=== PATIENT | male | born 1980 | race Caucasian/White ===

== ENCOUNTER 2019-07-12 19:00 | Emergency (ER) | payer MEDICAID, SELFPAY ==
[2019-07-12 19:02] VITALS: BP 120/92; PULSE 106; RESP 18; TEMP 36.9; O2SAT 97; BMI 24.1
--- NOTE | 2019-07-12 19:26 | ED.DCSUM_ITS ---
History of Present Illness Informant: Patient, Family Associated Symptoms: Depressed, Decreased Interest, Decreased Concentration, Hopelessness, Suicidal Thoughts, Hostile - when he's drunk Specific plan (suicidal thought): hang himself Narrative: Brought in by mother and aunt. He is drunk and suicidal. All 3 agree that this has been the case for months if not years. He states he is dehydrated. He drinks no water or any other liquids other than alcohol. He drinks liquor and wine. When asked him what he drinks a day, he states I get up with the shakes, drink a couple bottles of wine, go to sleep, wake up and drink a couple more bottles of wine, go to sleep? He wants detox, but states he is screwed because he does not have any insurance. He agrees that he is also suicidal. He states that his life sucks. He used to see a counselor but it did not help him and it has been 6 years. He saw a counselor from [facility] for his alcohol use couple days ago and does not think that helped. He does not have any medical problems that he takes medications or as opposed to take prescriptions for. He vomits when he is really intoxicated and when he is with drawling which is pretty much every morning before he starts drinking. States he also does speed, methamphetamine, marijuana, and multiple pills that he can get a hold of any. <Hernando Alexander - Last Filed: 07/13/19 00:12> <Chris Mabry - Last Filed: 07/13/19 14:46> Chief Complaint: Suicidal - Past Medical History (1) Alcoholism Status: Chronic <Hernando Alexander - Last Filed: 07/13/19 00:12> Past Medical History Lives: With Family Alcohol: Heavy Drugs: Cocaine, Marijuana <Hernando Alexander - Last Filed: 07/13/19 00:12> <Chris Mabry - Last Filed: 07/13/19 14:46> - Allergies and Home Meds Allergies/Adverse Reactions: Allergies No Known Allergies Allergy (Verified 07/12/19 19:01) Primary Care Physician: NOT,DEFINED [NON-STAFF] - Review of Systems General: Reports: Malaise. Denies: Chills, Fever, Sweats Eyes: Denies: Visual changes - bilaterally, Diplopia ENT: Denies: Rhinorrhea, Sore throat Cardiovascular: Denies: Chest pain, Palpitations Respiratory: Denies: Dyspnea, Cough, Dyspnea on exertion Gastrointestinal: Reports: Nausea, Vomiting. Denies: Abdominal pain, Diarrhea, Melena, Hematochezia Genitourinary: Denies: Dysuria, Hematuria, Frequency Musculoskeletal: Denies: Back pain, Extremity Pain Skin: Denies: Rash, Wounds Neurological: Denies: Headache, Weakness, Numbness Psych: Reports: Depression, Suicidal thoughts, Suicidal ideations <Hernando Alexander - Last Filed: 07/13/19 00:12> Physical Exam Vital Signs/Narrative: Vital Signs Temp Pulse Resp BP Pulse Ox 07/12/19 19:02 98.5 F 106 H 18 120/92 H 97 Inital Vital Signs reviewed: Yes General: Well nourished, Well developed, - - NAD Head: Normocephalic, Atraumatic Eyes: Perrl, EOMI ENT: Moist mucous membranes, No rhinorrhea Neck: Supple, Nontender Cardiovascular: Regular rate, Regular rhythm, No murmurs Respiratory: No distress, CTA bilaterally, Chest nontender Abdomen: Soft, Nontender, Nondistended, Normal bowel sounds Back: Nontender, Normal Inspection Extremities: Nontender, No Edema Skin: Normal color, No rash Neurological: Alert, Oriented x3, Cranial nerves II-XII grossly intact, Normal Strength, Normal Sensation Psych: Good Insight, Depressed, Irritable, Labile, Poor Judgement <Hernando Alexander - Last Filed: 07/13/19 00:12> Vital Signs/Narrative: Vital Signs Temp Pulse Resp BP Pulse Ox 07/13/19 14:00 98.6 F 79 18 146/94 H 98 07/13/19 13:00 16 07/13/19 12:43 18 <Chris Mabry - Last Filed: 07/13/19 14:46> Diagnostic/Tx/Re-eval Laboratory Results 07/12/19 07/12/19 07/12/19 21:15 21:25 21:25 WBC 10.4 RBC 5.41 Hgb 16.7 H Hct 48.5 MCV 89.6 MCH 30.9 MCHC 34.4 RDW Std Deviation 39.1 RDW Coeff of Prakash 11.9 Plt Count 289 MPV 8.2 Immature Gran % (Auto) 0.300 Neut % (Auto) 37.6 L Lymph % (Auto) 51.9 H [place] % (Auto) 6.0 Eos % (Auto) 3.6 Baso % (Auto) 0.6 Absolute Neuts (auto) 3.9 Absolute Lymphs (auto) 5.38 H Nucleated RBC % 0 Differential Comment SCANNED PT INR Sodium 139 Potassium 3.9 Chloride 104 Carbon Dioxide 28.0 Anion Gap 7 BUN 18 Creatinine 0.93 Estim Creat Clear Calc 116.95 Est GFR (MDRD) Af Amer 118 Est GFR (MDRD) Non-Af 98 BUN/Creatinine Ratio 19.4 Glucose 90 Calcium 8.8 Total Bilirubin 0.30 AST 57 H ALT 61 Alkaline Phosphatase 71 Total Protein 8.0 Albumin 4.2 Globulin 3.8 Albumin/Globulin Ratio 1.1 Urine Opiates Screen NEGATIVE Urine Methadone Screen NEGATIVE Ur Barbiturates Screen NEGATIVE Ur Phencyclidine Scrn NEGATIVE Ur Amphetamines Screen NEGATIVE U Methamphetamin-MDMA NEGATIVE U Benzodiazepines Scrn NEGATIVE Urine Cocaine Screen NEGATIVE U Cannabinoids Screen NEGATIVE Ur Drug Screen Comment Ethyl Alcohol 07/12/19 07/12/19 21:25 21:25 WBC RBC Hgb Hct MCV MCH MCHC RDW Std Deviation RDW Coeff of Prakash Plt Count MPV Immature Gran % (Auto) Neut % (Auto) Lymph % (Auto) [place] % (Auto) Eos % (Auto) Baso % (Auto) Absolute Neuts (auto) Absolute Lymphs (auto) Nucleated RBC % Differential Comment PT 11.2 L INR 0.8 Sodium Potassium Chloride Carbon Dioxide Anion Gap BUN Creatinine Estim Creat Clear Calc Est GFR (MDRD) Af Amer Est GFR (MDRD) Non-Af BUN/Creatinine Ratio Glucose Calcium Total Bilirubin AST ALT Alkaline Phosphatase Total Protein Albumin Globulin Albumin/Globulin Ratio Urine Opiates Screen Urine Methadone Screen Ur Barbiturates Screen Ur Phencyclidine Scrn Ur Amphetamines Screen U Methamphetamin-MDMA U Benzodiazepines Scrn Urine Cocaine Screen U Cannabinoids Screen Ur Drug Screen Comment Ethyl Alcohol 328.0 H* I had a long conversation with the patient. I told him that we would get a counselor talk to him if he would give us some blood and urine samples to evaluate him further with, we would help him with his depression, we would place an IV and give him a bag of fluid along with some medications to help him feel better, also thiamine and folate were ordered. I advised him that admitting him here would not be the best plan given his suicidality, and that we would need to look for a place that would be able to admit him for his psychiatric issues and also be able to help him with his addiction issues and alcohol withdrawal. Also advised that we would be happy to treat his withdrawal symptoms if he developed any while he was here. He exclaimed thanks and was calm. After I left the room, his family accompanied him outside of the ER but he returned, willingly. He was then pink slipped and offered oral Ativan at his request for something to help him calm down, although he refused to take it then. He then was more accepting to our offer for treatment, but he refused IV because he states he is afraid of needles, and all fluids and medications that we ordered. His work-up returned unremarkable except for his alcohol over 300. He is medically cleared, and I asked him if he would like to be admitted for detox, which is part of what we discussed at length earlier. He was reminded that to admit him for inpatient detox from alcohol he would need an IV. As a result of this, he states he would not like to be admitted and would prefer to quit cold turkey. Given this, he will need to be watched in the emergency department until he is alcohol is metabolized and then crisis will see him. I did discuss with him that if he requires medications for withdrawal that we would may need to give him injections or pills, and he still is refusing an IV. <Hernando Alexander - Last Filed: 07/13/19 00:12> - EKG Initial EKG Interpretation: Sinus Rhythm, No Acute Injury Pattern Care of the patient was turned over to me at 7 AM. Patient was resting comfortably. Repeat alcohol level was obtained and was 62. Crisis counselor was in to evaluate the patient and felt that the patient would benefit from inpatient behavioral health admission as well as admission for his alcohol abuse. He is attempting to place the patient in a facility that can treat both. EKG was ordered. Patient is medically cleared for psychiatric admission. Patient understands and is agreeable with the plan. All questions were answered. <Chris Mabry - Last Filed: 07/13/19 14:46> ED Disposition <Hernando Alexander - Last Filed: 07/13/19 00:12> <Chris Mabry - Last Filed: 07/13/19 14:46> - Plan for ED Patient: Diagnosis: Alcoholism, Alcohol intoxication, Suicidal ideation Referrals: NOT,DEFINED [NON-STAFF] -
--- NOTE | 2019-07-12 19:29 | ED.RN ---
WHEN THIS RN INITIALLY ENTERED ROOM FOR PATIENT ASSESSMENT PT STATES FUCK THIS BITCH SHE DOESN'T KNOW ANYTHING ABOUT ADDICTION. THIS RN CONTINUED TO SPEAK WITH MOTHER AND AUNT IN ROOM SINCE PT WAS UNCOOPERATIVE AND NOT MAKING EYE CONTACT. VISIBLE AGITATION. DR. BATES ENTERS ROOM AND BEGINS HIS ASSESSMENT OF PT WHILE THIS RN STILL IN ROOM. WHEN DR. BATES LEFT THE ROOM PT STATES SEND THE DOCTOR BACK IN TO GIVE ME A BLOW JOB. THIS RN CONTINUES TO TALK TO PATIENT PROFESSIONALLY ASKING IF HE NEEDED TO USE THE BATHROOM FIRST TO GET A SAMPLE OF WOULD PREFER TO JUST GET BLOOD WORK AND MEDICATION. PT STATES FUCK THIS I'M OUT OF HERE PATIENT LEAVES ROOM WITH MOTHER AND AUNT LEAVES THE EMERGENCY DEPARTMENT. DR. BATES NOTIFIED. DR. BATES STATES WE ARE NOT GOING TO HOLD HIM HERE AGAINST HIS WILL FOR TREATMENT. CHARGE NURSE Nickolas CARDONA, ALSO NOTIFIED OF SITUATION.
--- NOTE | 2019-07-12 19:48 | ED.RN ---
PT RE-ENTERS THE EMERGENCY DEPARTMENT AND ESCORTED BACK TO HIS ROOM. ALL BELONGINGS TAKEN AT THIS TIME. NOTIFIED. ELISE NOTIFIED
[2019-07-12 21:00] VITALS: RESP 18
--- NOTE | 2019-07-12 21:07 | CM.ED ---
Social Work Consult: Suicidal Informant: Dr. Alexander Chief Complaint: Patient seeking help for substance abuse, both alcohol and drugs. Marital/Social History: Single. Patient stating to have three children that I get to see sometimes. Living Situation: Lives with patient mother, Netta for the past three weeks. Support/Resources: Patient mother and aunt, Kristie. Patient stating to be in active counseling at [facility], Jose is patient counselor. Patient stating to also be on waiting list for [facility]. History: None Education/Employment: Unable to assess due to patient not responding to questions. Mental Health Treatment/History: Depression. Patient believes that patient might be bi-polar as well. Patient does not respond to question when asked if patient has any history of inpatient psychiatric placements. Abuse Issues: Unable to assess due to patient not responding to question. Substance Abuse Hx: Patient stating substance of choice is wine and to consume at least 6 bottles a wine daily. Patient stating the only time I am not drinking, it when I am sleeping. Patient stating to also use speed, pills and to prefer downers. Patient also stating to have a history of IV drug abuse. Patient stating to have a history of detox but that when patient detox's patient then decides that patient is able to help self and does not go into any extended treatment programs. Patient stating I love drugs. 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 Patient stating that last drink of wine was a few hours ago. Risk to Self/Others: Patient not responding to question when asking patient if patient is having any suicidal thoughts. Patient stating only a counselor would ask that. This social insurance specialist reeducating patient the role of this social insurance specialist. Patient then stating why am I fucking talking to you if your not a doctor. Patient then stating to remember that this social insurance specialist did introduce self when entering the room. This social insurance specialist did explain social insurance specialist role to patient again. Dr. Alexander is pink slipping patient based off of patient mother report and patient making suicidal comments on admission to ED. Mental Status Exam: A&Ox3 Appearance/General Behavior: Disheveled. Agitated. Communication Pattern: Responds to some questions. Non-directable. Changes topic often. Judgement: Poor. Assessment: Met with patient in room. Introduced self as well as social insurance specialist role. Patient mother and aunt are both present. Patient wanting family members to stay in room during assessment. Patient is not initially open to speaking with this social insurance specialist. This social insurance specialist allowing Nickolas Gonzalez RN to introduced this social insurance specialist further. Patient now speaking with this social insurance specialist, but then declined to speak with this social insurance specialist further when this social insurance specialist attempted to assess suicidal ideation/thoughts/intent. Patient with foul language through provocative statements throughout assessment. Patient did attempt to leave the ED and HRO Kyle Wilcox was notified and began speaking with patient. Kyle Wilcox was able to direct patient back to patient room. Patient continues to be agitated and frustrated when speaking with staff. Patient perseverating on being stuck by a needle. Patient stating to not want patient blood drawn via needle due to seeing to many bad needles. Patient educated by this social insurance specialist and medical team multiple times on reason for why blood work needs to be obtained and hygienic manner in which blood is obtained by trained professionals. Patient continues to refuse to have blood drawn. This social insurance specialist then leaving the room as patient appears to be getting more escalated with this social insurance specialist present as patient continues to state that she won't be able to help me. Updated medical team on assessment. Patient to have further evaluation either by social work or crisis when medically cleared. Malgorzata ARITA, CHANTAL
--- NOTE | 2019-07-12 21:25 | ED.RN ---
PATIENT MOVED FROM ED ROOM 8 TO ED ROOM 4 FOR STAFF AND PATIENT SAFETY. PT STILL CONFRONTATIONAL WITH STAFF. KADEEM MAGANA AT BEDSIDE SPEAKING WITH PATIENT. PATIENT CALM WITH OFFICER CHINO. PT ALLOWS CHARGE NURSE ALBERTO TO DRAW HIS BLOOD VIA STRAIGHT STICK BUT REFUSES AND IV STATING HE IS TERRIFIED OF NEEDLES. DR. BATES NOTIFIED OF INABILITY TO PLACE AN IV DUE TO PATIENT NONCOMPLIANCE. PT ALSO REFUSES ORAL ATIVAN TO HELP WITH WITHDRAWAL SYMPTOMS. SITTER AT BEDSIDE WITH PATIENT
[2019-07-12 21:32] LABS: Absolute Lymphocyte Count 5.38 X10^3/uL (0.83-4.51); Absolute Neutrophil Count 3.9 X10^3/uL (2.0-7.7); Basophil# 0.06 X10^3/uL; Basophil% 0.6 % (0-1); Differential Indicated SCAN CRITERIA MET; Eosinophil# 0.37 X10^3/uL; Eosinophils% 3.6 % (0-5); Hematocrit 48.5 % (40-54); Hemoglobin 16.7 g/dL (13.0-16.5); Lymphocyte # 5.38 X10^3/ul (4.0); Lymphocyte % 51.9 % (19-41); Mean Corp Hgb Conc 34.4 g/dL (32-36); Mean Corpuscular Hgb 30.9 pg (27.0-32.0); Mean Corpuscular Volume 89.6 fL (80-94); Mean Platelet Vol. 8.2 fl (6.2-12.0); Monocyte# 0.62 X10^3/uL; NRBC Flagged by Analyzer 0 % (0-5); Neutrophil % 37.6 % (47-70); POSITIVE DIFFERENTIAL YES; Platelet Count 289 K/mm3 (150-450); RBC Distribution Width CV 11.9 % (11.6-14.6); RBC Distribution Width SD 39.1 fl (35.1-43.9); Red Blood Count 5.41 M/mm3 (4.6-6.2); White Blood Count 10.4 K/mm3 (4.4-11.0)
[2019-07-12 21:41] LABS: International Normalized Ratio 0.8; Prothrombin Time (Protime)PT. 11.2 SECONDS (11.7-14.9)
[2019-07-12 21:50] LABS: ALB/GLOB Ratio 1.1 RATIO (0.9-2.4); AST(SGOT) 57 U/L (15-37); Alanine Aminotransfer ALT/SGPT 61 U/L (16-61); Albumin, Serum 4.2 g/dL (3.2-5.0); Alkaline Phosphatase 71 U/L (45-117); Anion Gap 7 (5-15); BUN 18 mg/dL (7-18); BUN/Creat Ratio 19.4 RATIO (10-20); Calcium,Total 8.8 mg/dL (8.5-10.1); Chloride 104 mmol/L (98-107); Creatinine, Serum 0.93 mg/dL (0.70-1.30); EST Glomerular Filtration Rate 98 mL/min (>60); Est Glom Filt Rate - Afr Amer 118 mL/min (>60); Estimated Creatinine Clearance 116.95 ml/min; Globulin 3.8 g/dL (2.2-4.2); Glucose 90 mg/dL (74-106); Potassium 3.9 mmol/L (3.5-5.1); Sodium Level 139 mmol/L (136-145)
[2019-07-12 22:00] VITALS: RESP 16
[2019-07-12 22:08] LABS: Amphetamine Urine VISTA NEGATIVE (<1000 ng/mL); Barbiturate Urine VISTA NEGATIVE (< 200 ng/mL); Benzodiazepine Urine VISTA NEGATIVE (< 200 ng/mL); Cocaine Urine VISTA NEGATIVE (< 300 ng/mL); Ecstacy Urine VISTA NEGATIVE (< 500 ng/mL); Methadone Urine VISTA NEGATIVE (< 300 ng/mL); PCP Urine VISTA NEGATIVE (< 25 ng/mL); THC Urine VISTA NEGATIVE (< 50 ng/mL); Vista UDS pH Range 7
[2019-07-12 22:18] LABS: Differential Comment SCANNED
[2019-07-12 23:00] VITALS: RESP 17
[2019-07-13] VITALS (19 sets, daily range): BP systolic 116–146; BP diastolic 72–94; PULSE 73–89; RESP 16–18; TEMP 36.9–37; O2SAT 96–100
--- NOTE | 2019-07-13 08:05 | ED.RN ---
BREAKFAST TRAY DELIVERED TO PT. PT DENIES FURTHER NEEDS AT THIS TIME. AWAITING CRISIS TO SEE PT. PT COOPERATIVE AT THIS TIME.
[2019-07-13] MEDS: Ibuprofen 600 MG Tablet PO (08:17)
--- NOTE | 2019-07-13 09:06 | NURSING ---
CALLED CRISIS. TALKED TO VICE PRESIDENT CONSULTING SERVICES. SHE WILL GIVE MESSAGE TO TALON
--- NOTE | 2019-07-13 10:02 | NURSING ---
TALON, CRISIS, CALLED BACK. TALKING TO CHARGE
[2019-07-13] MEDS: Nicotine Polacrilex 2 MG GUM PO (10:28)
--- NOTE | 2019-07-13 10:34 | NURSING ---
TALON, CRISIS, HERE
--- NOTE | 2019-07-13 14:24 | EKG12_ITS ---
Test Reason : MHC Blood Pressure : / mmHG Vent. Rate : 071 BPM Atrial Rate : 071 BPM P-R Int : 144 ms QRS Dur : 098 ms QT Int : 390 ms P-R-T Axes : 053 084 080 degrees QTc Int : 423 ms Normal sinus rhythm Normal ECG Confirmed by TREVON SALAZAR, JERED ([id number]), website/blog editor EMERSON ARRIAZA ([id number]) on 07/16/2019 2:10:33 PM Referred By: TEODORO Confirmed By:NAMITA LESTER MD
--- NOTE | 2019-07-13 14:45 | NURSING ---
NO OLD EKGS
[2019-07-13 17:11] LABS: Bacteria 0 SEEN /hpf (None Seen); Mucous, Urine 0 SEEN /hpf (<or=2+); Red Blood Cells-Urine 0 SEEN /hpf (0-5); Squamous Epithelial Cells - UA 0 SEEN /hpf (0-5)
[2019-07-13 17:18] LABS: Color, Urine Yellow (Yellow); Glucose, Dipstick Normal (Normal); Ketone-Dipstick Negative (Negative); Leukocyte Esterase-Dipstick 100 /ul (Negative); Nitrite-Dipstick Negative (Negative); Occult Blood-Urine Negative /ul (Negative); Protein-Dipstick 15 mg/dl (Negative); Urine Bilirubin Dipstick Negative (Negative); Urine Clarity Clear (Clear); Urine Urobilinogen Normal (Normal)
[2019-07-13 17:45] LABS: White Blood Cells 0-5 SEEN /hpf (0-5)
== END 2019-07-13 21:03 ==
PROVIDERS: Emergency Medicine; Emergency Provider Emergency Medicine
DX: F10.229 Alcohol dependence with intoxication, unspecified (principal); R45.851 Suicidal ideations; F14.90 Cocaine use, unspecified, uncomplicated; F12.90 Cannabis use, unspecified, uncomplicated; Y90.3 Blood alcohol level of 60-79 mg/100 ml
CPT/HCPCS: 80053; 80307; 80320; 81001; 85025; 85610; 93005; 96361; 96374; 99284; J7030; A4216; G0480; J2405; J3490

== ENCOUNTER 2021-08-11 09:38 | Emergency (ER) | payer MEDICAID, SELFPAY ==
[2021-08-11 09:39] VITALS: BP 137/85; PULSE 67; RESP 16; TEMP 36.6; O2SAT 100; BMI 25.1
--- NOTE | 2021-08-11 09:42 | ED.RN ---
PT STATES INJURY OCCURRED AT WORK. PT AT THIS TIME DOES NOT WANT TO MAKE THIS A WORKERS COMP
--- NOTE | 2021-08-11 09:57 | ED.VIS.BACK ---
HPI History of Present Illness Chief Complaint: Back Detail of Chief Complaint: Back pain/injury that occurred yesterday Informant: patient Narrative Narrative: Patient presents to the emergency department chief complaint of back pain started yesterday while at work. Patient states that he was lifted a 40 pound box and was turning with it when he felt a discomfort in his low back. Patient was able to finish his shift. This morning he had a hard time getting out of bed and straightening up because of the amount of discomfort. Patient denies any pain rating down his legs. He denies numbness or tingling. He denies weakness of the extremity. He denies saddle anesthesia or paresthesias. Patient does not want to file this under Workmen's Comp. at this time. Prior similar symptoms: No PFSH PFSH Medical History no medical history Home Medications NK 07/12/19 [History Last Taken Unknown] Allergy/AdvReac Type Severity Reaction Status Date / Time No Known Allergies Allergy Verified 08/11/21 09:42 Surgical History no surgical history Social History Smoking Status: Current every day smoker tobacco type: cigarettes ROS ROS ED Constitutional Constitutional ED: Reports systems reviewed and no addt'l complaints, except as documented; Denies body ache(s), change in weight or chills Eyes Eyes: Denies acute decrease in peripheral vision, change in vision, double vision or loss of vision ENT ENT ED: Reports none; Denies ear pain, lip swelling, loss taste/smell, neck pain, otalgia or sore throat Cardiovascular Cardiovascular: Reports none; Denies abdominal pain, chest pain with activity, leg edema, lightheadedness, palpitations, rapid heart rate or syncope Respiratory/Chest Respiratory/Chest: Reports none; Denies change in mental status, dry cough, dyspnea, hemoptysis, shortness of breath at rest or shortness of breath with exertion Gastrointestinal Gastrointestinal: Reports none; Denies abdominal pain, change in stool character, diarrhea, hematemesis, hematochezia, melena, rectal bleeding or vomiting Genitourinary Genitourinary ED: Reports none; Denies abdominal discomfort, anuria, dysuria, genital pain or polyuria Musculoskeletal Musculoskeletal: Reports none and back pain; Denies arthralgias, difficulty walking, extremity pain, muscle weakness or myalgias Integumentary Reports none; Denies abscess or rash Neurologic Neurologic: Reports none; Denies abnormal gait, confusion, focal weakness, frequent falls, headache(s), loss of vision, numbness, paresthesias, radicular pain, vertigo or weakness Psychiatric Psychiatric: Reports systems reviewed and no addt'l complaints, except as documented and none; Denies behavioral changes, confusion, difficulty concentrating, hallucinations, suicidal ideation, tactile hallucinations or visual hallucinations Endocrine Endocrinology: Denies none, cold intolerance, excessive sweating, fatigue or heat intolerance Hematologic/Lymphatic Hematologic/Lymphatic: Reports none; Denies anemia, easy bleeding or easy bruising Allergic/Immunologic Allergic/Immunologic ED: Denies as per HPI, none, lip swelling, mouth swelling, throat swelling, tongue swelling or hives EXAM Physical Exam Const Vital Signs: 08/11/21 09:39 Temperature 97.9 F Temperature Source Temporal Pulse Rate 67 Respiratory Rate 16 Blood Pressure 137/85 H Blood Pressure Mean 102 Pulse Ox 100 Oxygen Delivery Method Room Air Positive well nourished and well developed General Appearance ED: well developed and NAD HEENT Reports TM's clear and moist mucous membranes normocephalic and atraumatic; Negative for trauma or tenderness Tympanic Membrane ED: Yes TM's clear Eyes PERRL and EOMs intact bilaterally General Eye ED: Negative for pale conjunctiva or scleral icterus Neck no lymphadenopathy, supple and no JVD General: Negative for tenderness Chest Wall inspection of chest normal and palpation of chest normal Chest: Negative for tenderness Resp normal respiratory effort and clear to auscultation bilaterally Effort and Inspection: Negative for respiratory distress or pain with movement Auscultation: Negative for rhonchi, wheezes or diminished lung sounds Cardio regular rate, regular rhythm, S1 normal heart sound, S2 normal heart sound and no murmurs Peripheral Pulses: pulses 2+ throughout GI normal to inspection, nondistended, normoactive bowel sounds, soft to palpation, non-tender, non-distended and no masses Back/Spine no CVA tenderness and no thoracic nor lumbar tenderness Back/Spine Narrative: Patient with mild tenderness over the lumbar paraspinal musculature bilaterally. No tenderness over the thoracic or lumbar spine. He has negative straight leg raises. Deep tendon reflexes are plus 2 out of 4 bilaterally at the patella and Achilles. Patient has normal 5 extension bilaterally. Extremity normal to inspection General Extremety ED: Negative for edema General Extremity: Negative for edema Neuro oriented x3, CN's II-XII intact bilaterally, no sensory deficits noted and gait normal Sensorium / Orientation: awake, alert, oriented to person, oriented to place and oriented to time Motor Exam: strength 5/5 throughout and strength abnormal Psych mental status grossly normal Skin no rashes or lesions noted and no wounds MDM MDM MDM Narrative Medical decision making narrative: Patient is now anything for pain in department. Patient states he will stick with ibuprofen and he just wanted to get checked out. He called off work for today and wants a note for work for today and possibly tomorrow. He does not want work restrictions. I will refer him to primary care physician perfusionist for no doc for follow-up. Discharge Plan Triage Chief Complaint: Back ED Provider: Yoli Romo Dx/Rx/DC Orders Clinical Impression: Acute lumbar myofascial strain Instructions: ED Back Sprain/Strain Prescriptions: No Action NK RF: 0 Primary Care Provider: Care Physician,No Primary Referrals: Chris Cordero MD [STAFF PHYSICIAN] - 3-5 Days Care Physician,No Primary [Primary Care Provider] - Disposition Disposition: Home, Self Care
[2021-08-11 10:39] VITALS: PULSE 74; RESP 16
--- NOTE | 2021-08-11 10:40 | ED.RN ---
THIS NURSE REVIEWED D/C INSTRUCTIONS WITH PT AND VISITOR. PT VERBALIZED UNDERSTANDING OF INSTRUCTIONS. PT DENIES FURTHER NEEDS OR QUESTIONS AT THIS TIME.
== END 2021-08-11 10:41 | disposition home or self-care (01) ==
LOC: ED 10:06
PROVIDERS: Emergency Provider Emergency Medicine; Visit Provider Emergency Medicine
DX: S39.012A Strain of muscle, fascia and tendon of lower back, initial encounter (principal); F17.210 Nicotine dependence, cigarettes, uncomplicated; X50.0XXA Overexertion from strenuous movement or load, initial encounter; Y93.89 Activity, other specified; Y99.0 Civilian activity done for income or pay; Y92.89 Other specified places as the place of occurrence of the external cause
CPT/HCPCS: 99282

== ENCOUNTER 2023-09-19 10:37 | Inpatient (IN) | payer MEDICAID, SELFPAY ==
[2023-09-19] VITALS (12 sets, daily range): BP systolic 119–186; BP diastolic 78–106; PULSE 76–143; RESP 16–24; TEMP 35.5–37.5; O2SAT 97–100; BMI 25.5; BMI 24.8
--- NOTE | 2023-09-19 11:23 | EX.ED.SAOD ---
HPI <VENKATESH Wolfe - Last Filed: 09/19/23 14:59> History of Present Illness Chief Complaint: Substance Abuse Narrative Narrative: Patient presenting today requesting alcohol detox. He reports that he has been drinking heavily for years and drinks about 2 large bottles- 2 gallons of vodka daily. He reports that he has been on a 10-day binge and feels like his bodies,poisoned. He reports that he will experience withdrawal within a few hours after his last drink, he will have hallucinations, nausea, vomiting, tremors, and anxiety. His last drink was a few hours ago. He reports that he is feeling shaky and anxious. He has detoxed in the past. He has abused barbiturates and benzodiazepines in the past but has not used them in about 5 years. He did report to triage that he was feeling suicidal and stated,I plan on drinking myself to or finding pills to overdose on. PFSH <VENKATESH Wolfe - Last Filed: 09/19/23 14:59> [facility] Home Medications cholecalciferol (vitamin D3) 50 mcg (2,000 unit) capsule (D3-2000) 50 mcg PO DAILY SUPPLEMENT 09/19/23 [History Last Taken Unknown] magnesium oxide 1 tab PO DAILY SUPPLEMENT 09/19/23 [History Last Taken Unknown] multivitamin (Daily Multi-Vitamin tablet) 1 tab PO DAILY SUPPLEMENT 09/19/23 [History Last Taken Unknown] omega 2-jsg-kuw-fish oil 60 mg-90 mg-500 mg capsule (Fish Oil) 1 cap PO DAILY SUPPLEMENT 09/19/23 [History Last Taken Unknown] zinc sulfate 1 tab PO DAILY SUPPLEMENT 09/19/23 [History Last Taken Unknown] Allergy/AdvReac Type Severity Reaction Status Date / Time No Known Allergies Allergy Verified 08/11/21 09:42 Social History Smoking Status: Current every day smoker tobacco type: cigarettes ROS <VENKATESH Wolfe - Last Filed: 09/19/23 14:59> ROS ED Constitutional Constitutional ED: Denies chills or fever(s) Cardiovascular Cardiovascular: Denies chest pain or palpitations Respiratory/Chest Respiratory/Chest: Denies cough or dyspnea Gastrointestinal Gastrointestinal: Reports nausea; Denies abdominal pain or vomiting Genitourinary Genitourinary ED: Denies dysuria, hematuria or urinary urgency Musculoskeletal Musculoskeletal: Denies arthralgias or myalgias Integumentary Denies rash Neurologic Neurologic: Denies weakness Psychiatric Psychiatric: Reports anxiety, suicidal ideation and suicidal thoughts; Denies homicidal ideation EXAM <VENKATESH Wolfe - Last Filed: 09/19/23 14:59> Physical Exam Const Vital Signs: 09/19/23 10:41 09/19/23 10:40 09/19/23 11:40 Temperature 96 F L Temperature Source Temporal Pulse Rate 125 H 125 H 106 H Respiratory Rate 24 H 19 H Blood Pressure 148/92 H 148/92 H 186/106 H Blood Pressure Mean 110 110 132 Pulse Ox 100 97 Oxygen Delivery Method Room Air Room Air 09/19/23 12:00 09/19/23 13:00 09/19/23 14:00 Temperature Temperature Source Pulse Rate 102 H 100 98 Respiratory Rate 17 18 16 Blood Pressure 178/102 H 142/96 H 145/82 H Blood Pressure Mean 127 111 103 Pulse Ox 98 98 98 Oxygen Delivery Method Room Air Room Air Room Air Positive well nourished, well developed and no apparent distress General Appearance ED: well developed HEENT Reports normocephalic and head/scalp atraumatic Mouth ED: Yes moist mucous membranes normal Eyes PERRL and EOMs intact bilaterally Neck full ROM and supple Chest Wall inspection of chest normal Resp normal respiratory effort and clear to auscultation bilaterally Cardio regular rate and regular rhythm GI soft to palpation, non-tender, non-distended and no masses Back/Spine normal ROM and normal to inspection Extremity normal to inspection and full ROM Neuro oriented x3, CN's II-XII intact bilaterally, moves all extremities, no focal motor deficits and no sensory deficits noted Sensorium / Orientation: awake and alert Psych mental status grossly normal and thought process normal Attitude: withdrawn Mood & Affect: depressed and anxious Thought Content: suicidality, No homicidality and No hallucination(s) Skin no rashes or lesions noted and no wounds <Dr. Vlad Mac DO - Last Filed: 09/19/23 15:19> Physical Exam Const Vital Signs: 09/19/23 10:41 09/19/23 10:40 09/19/23 11:40 Temperature 96 F L Temperature Source Temporal Pulse Rate 125 H 125 H 106 H Respiratory Rate 24 H 19 H Blood Pressure 148/92 H 148/92 H 186/106 H Blood Pressure Mean 110 110 132 Pulse Ox 100 97 Oxygen Delivery Method Room Air Room Air 09/19/23 12:00 09/19/23 13:00 09/19/23 14:00 Temperature Temperature Source Pulse Rate 102 H 100 98 Respiratory Rate 17 18 16 Blood Pressure 178/102 H 142/96 H 145/82 H Blood Pressure Mean 127 111 103 Pulse Ox 98 98 98 Oxygen Delivery Method Room Air Room Air Room Air [facility] <VENKATESH Wolfe - Last Filed: 09/19/23 14:59> [facility] Narrative Medical decision making narrative: Patient presenting requesting detox. He has also made several remarks about feeling suicidal. He told the triage nurse that he was planning on drinking himself to or overdosing on pills. He then told me the same thing. Patient does appear intoxicated. His last drink was this morning and he does feel he is starting to go through withdrawal with anxiety and shakes. He has been drinking heavily, especially over the past 10 days. No history of withdrawal seizure. Patient will be given phenobarbital, Ativan, IV fluids, and Zofran. Labs will be obtained. Patient was pink slipped due to his suicidality. However, on reexamination he reports that he is no longer feeling suicidal. I do feel he would benefit from admission to the hospital for detox and crisis evaluation. I did speak with the hospitalist and he will be admitted in stable condition. Lab Data Attestation: I reviewed the patient's lab results. Lab results narrative: Bilirubin 1.5, AST 67, ALT 95 Labs: Laboratory Results - last 24 hr 09/19/23 09/19/23 12:03 12:30 WBC 9.3 RBC 5.39 Hgb 16.5 Hct 47.4 MCV 87.9 MCH 30.6 MCHC 34.8 RDW Std Deviation 39.8 RDW Coeff of Prakash 12.4 Plt Count 325 MPV 8.0 Immature Gran % (Auto) 0.300 Neut % (Auto) 65.8 Lymph % (Auto) 26.6 [place] % (Auto) 5.8 Eos % (Auto) 0.5 Baso % (Auto) 1.0 Absolute Neuts (auto) 6.1 Absolute Lymphs (auto) 2.46 Nucleated RBC % 0 Sodium 135 L Potassium 4.0 Chloride 98 Carbon Dioxide 20.0 L Anion Gap 17 H BUN 17 Creatinine 1.07 Estim Creat Clear Calc 94.76 Est GFR (MDRD) Af Amer 98 Est GFR (MDRD) Non-Af 81 BUN/Creatinine Ratio 15.9 Glucose 94 Calcium 9.1 Total Bilirubin 1.50 H AST 67 H ALT 95 H Alkaline Phosphatase 87 Total Protein 8.5 H Albumin 4.6 Globulin 3.9 Albumin/Globulin Ratio 1.2 Urine Opiates Screen NEGATIVE Urine Methadone Screen NEGATIVE Ur Barbiturates Screen NEGATIVE Ur Phencyclidine Scrn NEGATIVE Ur Amphetamines Screen NEGATIVE MDMA (Ecstasy) Screen NEGATIVE U Benzodiazepines Scrn NEGATIVE Urine Cocaine Screen NEGATIVE U Cannabinoids Screen NEGATIVE Ur Drug Screen Comment Ethyl Alcohol 309.0 H* <Dr. Vlad Mac, DO - Last Filed: 09/19/23 15:19> MDM MDM Narrative Medical decision making narrative: Patient presenting requesting detox. He has also made several remarks about feeling suicidal. He told the triage nurse that he was planning on drinking himself to or overdosing on pills. He then told me the same thing. Patient does appear intoxicated. His last drink was this morning and he does feel he is starting to go through withdrawal with anxiety and shakes. He has been drinking heavily, especially over the past 10 days. No history of withdrawal seizure. Patient will be given phenobarbital, Ativan, IV fluids, and Zofran. Labs will be obtained. Patient was pink slipped due to his suicidality. However, on reexamination he reports that he is no longer feeling suicidal. I do feel he would benefit from admission to the hospital for detox and crisis evaluation. I did speak with the hospitalist and he will be admitted in stable condition. ED attending note: I evaluated the patient in conjunction with the CORINNA. I agree with his/her statements and above findings. I have personally performed a face to face assessment of the patient and have reviewed the CORINNA Note. I performed a substantive portion of the visit including all aspects of the following. I personally saw the patient performed chart review, physical exam, reviewed labs, imaging (if obtained), and formulated a treatment and management plan. This note was generated with [employer] dictation software. It may contain incorrect words, spelling, and punctuation that were not noted in review of the chart prior to signing. Lab Data Labs: Laboratory Results - last 24 hr 09/19/23 09/19/23 12:03 12:30 WBC 9.3 RBC 5.39 Hgb 16.5 Hct 47.4 MCV 87.9 MCH 30.6 MCHC 34.8 RDW Std Deviation 39.8 RDW Coeff of Prakash 12.4 Plt Count 325 MPV 8.0 Immature Gran % (Auto) 0.300 Neut % (Auto) 65.8 Lymph % (Auto) 26.6 [place] % (Auto) 5.8 Eos % (Auto) 0.5 Baso % (Auto) 1.0 Absolute Neuts (auto) 6.1 Absolute Lymphs (auto) 2.46 Nucleated RBC % 0 Sodium 135 L Potassium 4.0 Chloride 98 Carbon Dioxide 20.0 L Anion Gap 17 H BUN 17 Creatinine 1.07 Estim Creat Clear Calc 94.76 Est GFR (MDRD) Af Amer 98 Est GFR (MDRD) Non-Af 81 BUN/Creatinine Ratio 15.9 Glucose 94 Calcium 9.1 Total Bilirubin 1.50 H AST 67 H ALT 95 H Alkaline Phosphatase 87 Total Protein 8.5 H Albumin 4.6 Globulin 3.9 Albumin/Globulin Ratio 1.2 Urine Opiates Screen NEGATIVE Urine Methadone Screen NEGATIVE Ur Barbiturates Screen NEGATIVE Ur Phencyclidine Scrn NEGATIVE Ur Amphetamines Screen NEGATIVE MDMA (Ecstasy) Screen NEGATIVE U Benzodiazepines Scrn NEGATIVE Urine Cocaine Screen NEGATIVE U Cannabinoids Screen NEGATIVE Ur Drug Screen Comment Ethyl Alcohol 309.0 H* Discharge Plan Dx/Rx/DC Orders Clinical Impression: Desire for detoxification, Alcohol abuse, Suicidal ideations, Alcohol intoxication, Depressed Disposition Disposition: Acute Care Hospital [facility]
[2023-09-19] MEDS: Ondansetron 4 MG/2 ML Vial IV ×2 (12:01→20:01)
[2023-09-19] MEDS: LORazepam 2 MG/ML Syringe 1 MG IV (12:02)
[2023-09-19] MEDS: 0.9% Normal Saline (1000mL) 1,000 ML 999 ML IV (12:03)
[2023-09-19] MEDS: Phenobarbital 32.4 MG Tablet PO (12:03)
[2023-09-19 12:13] LABS: Absolute Lymphocyte Count 2.46 X10^3/uL (0.83-4.51); Absolute Neutrophil Count 6.1 X10^3/uL (2.0-7.7); Basophil# 0.09 X10^3/uL; Eosinophil# 0.05 X10^3/uL; Eosinophils% 0.5 % (0-5); Hematocrit 47.4 % (40-54); Hemoglobin 16.5 g/dL (13.0-16.5); Lymphocyte # 2.46 X10^3/ul (0.83-4.51); Lymphocyte % 26.6 % (19-41); Mean Corp Hgb Conc 34.8 g/dL (32-36); Mean Corpuscular Hgb 30.6 pg (27.0-32.0); Mean Corpuscular Volume 87.9 fL (80-94); Monocyte# 0.54 X10^3/uL; Monocyte% 5.8 % (0-10); NRBC Flagged by Analyzer 0 % (0-5); Neutrophil # 6.09 X10^3/uL (2.7-7.7); Neutrophil % 65.8 % (47-70); Platelet Count 325 K/mm3 (150-450); RBC Distribution Width CV 12.4 % (11.6-14.6); RBC Distribution Width SD 39.8 fl (35.1-43.9); Red Blood Count 5.39 M/mm3 (4.6-6.2); White Blood Count 9.3 K/mm3 (4.4-11.0)
--- NOTE | 2023-09-19 12:25 | NURSING ---
notified this RN that pt now needs a sitter for suicide precautions.
[2023-09-19 12:34] LABS: ALB/GLOB Ratio 1.2 RATIO (0.9-2.4); AST(SGOT) 67 U/L (15-37); Alanine Aminotransfer ALT/SGPT 95 U/L (16-61); Albumin, Serum 4.6 g/dL (3.2-5.0); Alkaline Phosphatase 87 U/L (45-117); Anion Gap 17 (5-15); BUN 17 mg/dL (7-18); BUN/Creat Ratio 15.9 RATIO (10-20); Calcium,Total 9.1 mg/dL (8.5-10.1); Chloride 98 mmol/L (98-107); Creatinine, Serum 1.07 mg/dL (0.70-1.30); EST Glomerular Filtration Rate 81 mL/min (>60); Est Glom Filt Rate - Afr Amer 98 mL/min (>60); Estimated Creatinine Clearance 94.76 ml/min; Globulin 3.9 g/dL (2.2-4.2); Glucose 94 mg/dL (74-106); Protein, Total 8.5 g/dL (6.4-8.2); Sodium Level 135 mmol/L (136-145)
[2023-09-19 13:13] LABS: Amphetamine Urine VISTA NEGATIVE (<1000 ng/mL); Barbiturate Urine VISTA NEGATIVE (< 200 ng/mL); Benzodiazepine Urine VISTA NEGATIVE (< 200 ng/mL); Cocaine Urine VISTA NEGATIVE (< 300 ng/mL); Ecstacy Urine VISTA NEGATIVE (< 500 ng/mL); Methadone Urine VISTA NEGATIVE (< 300 ng/mL); PCP Urine VISTA NEGATIVE (< 25 ng/mL); THC Urine VISTA NEGATIVE (< 50 ng/mL); Vista UDS pH Range 5
--- NOTE | 2023-09-19 14:18 | PCM.HP.STD ---
[facility] - General General Date of Admission: 09/19/23 Date of Service: 09/19/23 Chief Complaint: Wants help with alcohol detox. HPI Narrative GERARDO GARVIN, is a 42 M with a past medical history of tobacco abuse, history of lumbar myofascial strain, history of migraine headaches; triggered by previous alcohol withdrawal, chronic alcohol abuse and uncontrolled depression with anxiety who presents to [facility] ER complaining of wanting help with alcohol detoxification. Mr. Garvin reports he has been drinking ~2 gallons of vodka daily for several years but has recently went on a 10-day alcohol binge and feels like his body has been poisoned. In the past he states he is experienced alcohol withdrawal within a few hours of his last drink with associated hallucinations, nausea, vomiting tremors and anxiety though he denies symptoms at this time other than shakiness and anxiety. He also added that he has not used barbiturates and benzodiazepines in the past but he claims he has not used them in the past 5 years. He stated to the triage nurse he was thinking about possible suicidal ideation but then changed his mind after he stated, I plan on drinking myself to or finding pills to overdose on. He denies related fever, chills, nausea, vomiting or seizure activity but he was noted to have a blood alcohol concentration of 309 mg/dL present on admission and he was also 'pink slipped' in the ER. In the ER he was diagnosed with acute alcohol withdrawal in the setting of chronic severe alcohol abuse complicated by uncontrolled depression with suicidal ideation and he was then admitted to the general medical floor for ongoing care for stay that is expected to be greater than 48 hours. [facility] Medical History Anxiety Migraines Smoker Home Medications cholecalciferol (vitamin D3) 50 mcg (2,000 unit) capsule (D3-2000) 50 mcg PO DAILY SUPPLEMENT 09/19/23 [History Last Taken Unknown] magnesium oxide 1 tab PO DAILY SUPPLEMENT 09/19/23 [History Last Taken Unknown] multivitamin (Daily Multi-Vitamin tablet) 1 tab PO DAILY SUPPLEMENT 09/19/23 [History Last Taken Unknown] omega 0-olt-jjh-fish oil 60 mg-90 mg-500 mg capsule (Fish Oil) 1 cap PO DAILY SUPPLEMENT 09/19/23 [History Last Taken Unknown] zinc sulfate 1 tab PO DAILY SUPPLEMENT 09/19/23 [History Last Taken Unknown] Allergy/AdvReac Type Severity Reaction Status Date / Time No Known Allergies Allergy Verified 08/11/21 09:42 Social History Smoking Status: Current every day smoker tobacco type: cigarettes ROS ROS Narrative Review of systems: General: Patient denies fever or chills. HENT: Denies headache, denies stuffy nose, denies sore throat EYES: Denies changes in vision or discharge from eyes. Resp: Denies cough, denies shortness of breath Cardiac: Denies chest pain, palpitations or heart racing. GI: Denies abdominal pain, denies changes in bowel, had some nausea but denies vomiting : Denies changes in urination Extremity: Denies swelling Musculoskeletal: Feels somewhat generally weak and unwell but denies arthralgias or myalgias. Neuro: Patient denies headache, paresthesias or focal neurologic weakness but he does admit to generalized shakiness. Heme: Denies any bleeding or bruising Skin: Denies rashes Psychiatric: Patient admitted to possible suicidal ideation as per HPI. He also states he has uncontrolled depression patient apparently self-medicating with alcohol which is only making his situation worse. Endocrine: No polyuria, polydipsia or polyphagia. The rest of the 14 point ROS was negative except for positives in HPI. Vital Signs Vital Signs Vital Signs: 09/19/23 10:41 09/19/23 10:40 09/19/23 11:40 Temperature 96 F L Temperature Source Temporal Pulse Rate 125 H 125 H 106 H Respiratory Rate 24 H 19 H Blood Pressure 148/92 H 148/92 H 186/106 H Blood Pressure Mean 110 110 132 Pulse Ox 100 97 Oxygen Delivery Method Room Air Room Air 09/19/23 12:00 09/19/23 13:00 09/19/23 14:00 Temperature Temperature Source Pulse Rate 102 H 100 98 Respiratory Rate 17 18 16 Blood Pressure 178/102 H 142/96 H 145/82 H Blood Pressure Mean 127 111 103 Pulse Ox 98 98 98 Oxygen Delivery Method Room Air Room Air Room Air Weight Weight: 178 lb Body Mass Index (BMI) 25.5 Physical Exam Const alert, oriented x3, no apparent distress and average body habitus General Appearance: cooperative HEENT normocephalic, head/scalp atraumatic, hearing grossly normal bilaterally and moist oral mucous membranes Eyes PERRL and EOMs intact bilaterally Neck no lymphadenopathy and supple Resp normal respiratory effort, no retractions, no use of accessory muscles and clear to auscultation bilaterally Cardio regular rate and regular rhythm GI normal to inspection, nondistended, normoactive bowel sounds, soft to palpation, non-tender and non-distended Extremity normal to inspection, full ROM and no clubbing, cyanosis or edema Skin Skin Narrative: Patient has no evidence of abscess, jaundice or rash. 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 Mood & Affect: depressed Results Medical Records Data Attestation: I reviewed the patient's medical records Lab / Micro Data Attestation: I reviewed the patient's lab results. 09/19/23 12:03 09/19/23 12:03 Labs: Laboratory Results - last 24 hr 09/19/23 12:03: WBC 9.3, RBC 5.39, Hgb 16.5, Hct 47.4, MCV 87.9, MCH 30.6, MCHC 34.8, RDW Std Deviation 39.8, RDW Coeff of Prakash 12.4, Plt Count 325, MPV 8.0, Immature Gran % (Auto) 0.300, Neut % (Auto) 65.8, Lymph % (Auto) 26.6, [place] % (Auto) 5.8, Eos % (Auto) 0.5, Baso % (Auto) 1.0, Absolute Neuts (auto) 6.1, Absolute Lymphs (auto) 2.46, Nucleated RBC % 0, Sodium 135 L, Potassium 4.0, Chloride 98, Carbon Dioxide 20.0 L, Anion Gap 17 H, BUN 17, Creatinine 1.07, Estim Creat Clear Calc 94.76, Est GFR (MDRD) Af Amer 98, Est GFR (MDRD) Non-Af 81, BUN/Creatinine Ratio 15.9, Glucose 94, Calcium 9.1, Total Bilirubin 1.50 H, AST 67 H, ALT 95 H, Alkaline Phosphatase 87, Total Protein 8.5 H, Albumin 4.6, Globulin 3.9, Albumin/Globulin Ratio 1.2, Ethyl Alcohol 309.0 H* 09/19/23 12:30: Urine Opiates Screen NEGATIVE, Urine Methadone Screen NEGATIVE, Ur Barbiturates Screen NEGATIVE, Ur Phencyclidine Scrn NEGATIVE, Ur Amphetamines Screen NEGATIVE, MDMA (Ecstasy) Screen NEGATIVE, U Benzodiazepines Scrn NEGATIVE, Urine Cocaine Screen NEGATIVE, U Cannabinoids Screen NEGATIVE, Ur Drug Screen Comment Assessment & Plan Assessment/Plan (1) Alcohol withdrawal: QUALIFIERS: Complication of substance-induced condition: uncomplicated Qualified Code(s): F10.930 - Alcohol use, unspecified with withdrawal, uncomplicated (2) Alcohol abuse: (3) Desire for detoxification: (4) Suicidal ideations: (5) Depressed: QUALIFIERS: Depression Type: unspecified Qualified Code(s): F32.A - Depression, unspecified (6) Tobacco abuse: PLAN: Plan 1. Acute alcohol withdrawal in the setting of chronic severe alcohol abuse - Admit to general medical floor for treatment under the alcohol withdrawal protocol consisting primarily of phenobarbital taper. Alcohol cessation will be strongly encouraged. 2. Uncontrolled depression with suicidal ideation complicating #1 - Continue supportive care and consult crisis to see patient this admission with help appreciated in advance. We will recheck patient's alcohol level in the a.m. so that crisis counseling can begin. 3. Chronic tobacco abuse compounding #1 & #2 - Tobacco cessation will be strongly encouraged with nicotine patch offered to control cravings. 4. History of lumbar myofascial strain - Noted. 5. DVT prophylaxis - Lovenox 40 mg sq daily. Total time: Approximately 55 minutes. Charges/Coding Visit Charges Inpatient E&M: 40530 Init Hosp L2
--- NOTE | 2023-09-19 14:18 | NURSING ---
HOSPITALIST FOR LD
--- NOTE | 2023-09-19 14:30 | NURSING ---
MED SURG JERMAIN DETOX ALCOHOL
[2023-09-19] MEDS: Phenobarbital 32.4 MG Tablet 97.2 MG PO ×3 (16:13→23:37)
[2023-09-19] MEDS: Gabapentin 300 MG Capsule PO ×2 (16:22→23:36)
[2023-09-19] MEDS: hydrOXYzine PAM 25 MG Capsule 50 MG PO ×2 (16:22→20:01)
[2023-09-19] MEDS: 0.9% Normal Saline (1000mL) 1,000 ML 100 ML IV (16:22)
[2023-09-19] MEDS: Dicyclomine 10 MG Capsule 20 MG PO (20:01)
[2023-09-19] MEDS: traZODone 100 MG Tablet PO (23:37)
[2023-09-20] MEDS: 0.9% Normal Saline (1000mL) 1,000 ML 100 ML IV ×2 (01:00→11:55)
[2023-09-20] MEDS: Phenobarbital 32.4 MG Tablet 97.2 MG PO ×4 (03:37→15:42)
[2023-09-20] MEDS: hydrOXYzine PAM 25 MG Capsule 50 MG PO (03:37)
[2023-09-20] MEDS: Dicyclomine 10 MG Capsule 20 MG PO (03:37)
[2023-09-20 03:39] VITALS: BP 129/79; PULSE 66; RESP 16; TEMP 36.6; O2SAT 97
[2023-09-20 07:46] LABS: Alcohol, Blood (Medical)-Serum < 3.0 mg/dL
[2023-09-20] MEDS: Thiamine Hydrochloride 100 MG Tablet PO (08:01)
[2023-09-20] MEDS: Folic Acid 1 MG Tablet PO (08:01)
[2023-09-20 08:54] VITALS: BP 108/69; PULSE 66; RESP 16; TEMP 36.4; O2SAT 100
--- NOTE | 2023-09-20 09:00 | ADDICTION ---
clinician met with client. client was cooperative and reflective on his mental health and addiction concerns. client reported a significant hx of depressive sx's; possibly caused by alcohol use. [facility] He reported a willingness to attend psych med management to assist in mood stabilization and to tx the co-occurring nature of his addiction. when asked, client reported no current SI, no plan, and no intent of harming himself. Client appears to be in the preparation stage of change as evidenced by making plans upon discharge. clinician will meet with client on 09/21/23 to further discuss tx plan upon release; mh and Aod tx.
--- NOTE | 2023-09-20 09:45 | CASEMGMT ---
Social work As per physician, pt is medically stable and ready to be assessed by crisis. SW called crisis, faxed referral, Elidia will be here this morning. [address]
--- NOTE | 2023-09-20 11:00 | PCM.PROGNOTE ---
Subjective Subjective Patient seen and examined. He had no active complaints. He denied any tremors, shakes, nausea, vomiting or any other symptoms. Review of systems is otherwise negative. He admitted to suicidal ideations on admission yesterday, but tells me today that it was all because he had too much alcohol in his system. HE denies any suicidal ideation today. Review of systems is otherwise negative. Objective Data Objective Data Vital Signs: Vital Signs Temp Pulse Resp BP Pulse Ox O2 Del Method 97.6 F L 66 16 108/69 100 Room Air 09/20/23 08:54 09/20/23 08:54 09/20/23 08:54 09/20/23 08:54 09/20/23 08:54 09/20/23 08:54 Oxygen Delivery Method Room Air Weight: 177 lb 15.984 oz Body Mass Index (BMI) 24.8 Intake & Output: Intake and Output for Last 24 Hours 09/18/23 09/19/23 09/20/23 23:59 23:59 23:59 Intake Total 1000 / 1000 863.33 / 863.33 Balance 1000 / 1000 863.33 / 863.33 Lab / Micro Data 09/19/23 12:03 09/19/23 12:03 Labs: Laboratory Results - last 24 hr 09/19/23 12:03: WBC 9.3, RBC 5.39, Hgb 16.5, Hct 47.4, MCV 87.9, MCH 30.6, MCHC 34.8, RDW Std Deviation 39.8, RDW Coeff of Prakash 12.4, Plt Count 325, MPV 8.0, Immature Gran % (Auto) 0.300, Neut % (Auto) 65.8, Lymph % (Auto) 26.6, Day % (Auto) 5.8, Eos % (Auto) 0.5, Baso % (Auto) 1.0, Absolute Neuts (auto) 6.1, Absolute Lymphs (auto) 2.46, Nucleated RBC % 0, Sodium 135 L, Potassium 4.0, Chloride 98, Carbon Dioxide 20.0 L, Anion Gap 17 H, BUN 17, Creatinine 1.07, Estim Creat Clear Calc 94.76, Est GFR (MDRD) Af Amer 98, Est GFR (MDRD) Non-Af 81, BUN/Creatinine Ratio 15.9, Glucose 94, Calcium 9.1, Total Bilirubin 1.50 H, AST 67 H, ALT 95 H, Alkaline Phosphatase 87, Total Protein 8.5 H, Albumin 4.6, Globulin 3.9, Albumin/Globulin Ratio 1.2, Ethyl Alcohol 309.0 H* 09/19/23 12:30: Urine Opiates Screen NEGATIVE, Urine Methadone Screen NEGATIVE, Ur Barbiturates Screen NEGATIVE, Ur Phencyclidine Scrn NEGATIVE, Ur Amphetamines Screen NEGATIVE, MDMA (Ecstasy) Screen NEGATIVE, U Benzodiazepines Scrn NEGATIVE, Urine Cocaine Screen NEGATIVE, U Cannabinoids Screen NEGATIVE, Ur Drug Screen Comment 09/20/23 07:13: Ethyl Alcohol < 3.0 Physical Exam Const alert, oriented x3 and no apparent distress General Appearance: cooperative and well developed HEENT normocephalic, head/scalp atraumatic, moist oral mucous membranes and oropharynx normal Eyes PERRL and EOMs intact bilaterally Neck no lymphadenopathy, supple and no JVD Lymph Lymphatic: no lymphadenopathy noted and no lymphedema noted Resp normal respiratory effort, normal air movement and clear to auscultation bilaterally Cardio regular rate, regular rhythm, S1 normal heart sound, S2 normal heart sound and no murmurs GI normal to inspection, nondistended, normoactive bowel sounds, soft to palpation, non-tender and non-distended Extremity normal capillary refill, no clubbing, cyanosis or edema and no calf tenderness General Extremity: no tenderness to palpation of joints or extremities Skin General Skin Exam: no breakdown Neuro CN's II-XII intact bilaterally, no focal motor deficits and no sensory deficits noted Motor Exam: strength 5/5 throughout and general weakness Psych thought process normal, cooperative and affect normal Appearance: appropriate Assessment & Plan Assessment/Plan (1) Alcohol withdrawal: QUALIFIERS: Complication of substance-induced condition: uncomplicated Qualified Code(s): F10.930 - Alcohol use, unspecified with withdrawal, uncomplicated (2) Tobacco abuse: (3) Suicidal ideations: PLAN: Plan #Acute alcohol withdrawal On alcohol withdrawal protocol with phenobarbital. Monitor CIWA score. On thiamine, folic acid and Multi-Leon. Adjunctive meds for symptomatic relief. #Suicidal ideation: Patient denies she does state LAD stenting says it was because he had too much alcohol in the system yesterday that is why he admitted to suicidal ideation. I still think is a good idea to get mental health crisis team to evaluate him. #Chronic nicotine dependence: Nicotine patch. Counseled to quit. DVT prophylaxis: Lovenox Charges/Coding Visit Charges Inpatient E&M: 69495 Subs Hosp L2
[2023-09-20 12:09] VITALS: BP 138/80; PULSE 98; RESP 16; TEMP 36.9; O2SAT 99
--- NOTE | 2023-09-20 13:33 | CASEMGMT ---
Social Work RN spoke w/SW, pt's mother called in, she wants to help pt w/rent, not sure how to go about it. SW spoke w/pt, asked if he is concerned about his bills, he states he is concerned about his rent. He normally pays with his debit card but his mom would be able to go to [employer] to pay the rent, and he will pay her back. SW called pt's mother and let her know this, she states will pay his rent for him, will go to [employer]. SW let pt know. Pt's mother is coming here to get pt's linares so she can go get him clothing. [address]
--- NOTE | 2023-09-20 15:50 | CASEMGMT ---
Social Work Crisis called, pt has a bed at [facility]. SW notified charge nurse, she will let physician know to discharge pt. SW did ask the sheet metal worker maintenance to call pt's mother to let her know where pt is going. [address]
[2023-09-20 16:02] VITALS: BP 135/88; PULSE 83; RESP 16; TEMP 36.8; O2SAT 100
--- NOTE | 2023-09-20 16:17 | CHAPLAIN ---
Type of Pastoral Visit _x__ Initial Visit ___ Follow-up Visit ___ On-call Visit ___ General Patient Visit ___ Spiritual Assessment ___ Family Conference ___ Bereavement ___ Rapid Response ___ Code Blue ___ Other (describe below) Pastoral Care Referral From _x__ Patient ___ Family ___ Nurse ___ Physician ___ Ferry Hand ___ Cake Icer ___ Other (describe below) Sacrament/Intervention _x__ Active listening ___ Anointing ___ Gnosticism ___ Bereavement ___ Communion _x__ Berna exploration ___ _x__ Life review _x__ Prayer ___ Reconciliation ___ Sacrament of Sick _x__ Supportive presence ___ Wedding ___ Other (describe below) Pastoral Comments this patient was pink slipped and had a sitter with him; sitter left the room to give pt the opportunity to talk openly and receive the needed support; pt states that he is not suicidal and does not want to end his life but that he is in this protocol because of unfortunate statements that I made while still enebreated; pt was given a very long time to unpack his past, his issues, his alcoholic relapse, his spiritual life, beliefs, and desires; pt spoke of his family and work situation and how he mishandled situations; pt displays a very high level of knowledge of his own past, his spirituality, his emotions, and his hopes for the future; pt admits a life long issue with depression and that was explored for further treatment needed; pt is very welcoming of spiritual support and care; 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
--- NOTE | 2023-09-21 07:10 | DS.PCM_ITS ---
Providers Date of Admission: 09/19/23 Date of Discharge: 09/20/23 Primary Care Physician: No Primary Care Phys Reason For Visit: ACUTE ALCOHOL WITHDRAWL IN SETTING OF CHRONIC Diagnosis Discharge Diagnosis (1) Alcohol withdrawal: Status: Acute Code(s): F10.939 - Alcohol use, unspecified with withdrawal, unspecified Qualifiers: Complication of substance-induced condition: uncomplicated Qualified Code(s): F10.930 - Alcohol use, unspecified with withdrawal, uncomplicated (2) Tobacco abuse: Status: Acute Code(s): Z72.0 - Tobacco use (3) Suicidal ideations: Status: Acute Code(s): R45.851 - Suicidal ideations Plan #Acute alcohol withdrawal * On alcohol withdrawal protocol with phenobarbital. Monitor CIWA score. * On thiamine, folic acid and Multi-Leon. * Adjunctive meds for symptomatic relief. * #Suicidal ideation: * Patient denies she does state LAD stenting says it was because he had too much alcohol in the system yesterday that is why he admitted to suicidal ideation. * I still think is a good idea to get mental health crisis team to evaluate him. * #Chronic nicotine dependence: Nicotine patch. Counseled to quit. DVT prophylaxis: Lovenox Medications at Discharge Home Medications cholecalciferol (vitamin D3) 50 mcg (2,000 unit) capsule (D3-2000) 50 mcg PO DAILY SUPPLEMENT 09/19/23 magnesium oxide 1 tab PO DAILY SUPPLEMENT 09/19/23 multivitamin (Daily Multi-Vitamin tablet) 1 tab PO DAILY SUPPLEMENT 09/19/23 omega 3-sqf-jwt-fish oil 60 mg-90 mg-500 mg capsule (Fish Oil) 1 cap PO DAILY SUPPLEMENT 09/19/23 zinc sulfate 1 tab PO DAILY SUPPLEMENT 09/19/23 Hospital Course Operations None Procedures None Summary of Care Provided Minutes Spent on Discharge: 55 Hospital Course: Patient is a 42-year-old male with a past medical history as outlined including chronic alcohol abuse and uncontrolled depression who was admitted through the ED on 09/19/2023 for acute alcohol withdrawal. Patient said he had been drinking about 2 gallons of vodka daily for several years but had gone on a 10-day alcohol binge and felt like his body had been poisoned. He admitted to shakines s and anxiety. He also complained of suicidal ideation when he came into the ED though he subsequently recanted this. He denied any fever or chills, nausea vomiting or seizure activity. On admission his blood alcohol level was 319 and he was pink slipped in the ER. He was admitted and managed for acute alcohol withdrawal in the setting of uncontrolled depression with suicidal ideation. He was started on alcohol withdrawal protocol with phenobarbital. Upon my review patient denied any suicidal ideation and said he thought he had too much alcohol in his system. Mental health crises was however consulted and in light of his history of chronic alcohol abuse. Mental health crisis recommended that patient be admitted to an inpatient psychiatric unit in light of his severe uncontrolled depression. Patient will also be able to get acute alcohol withdrawal in the inpatient psych unit. Patient was pink slipped again and he was discharged to the inpatient psych unit on 09/20/2023. Patient was seen and examined prior to discharge. He had no active complaints. Review of systems otherwise negative. Labs and vitals reviewed. Home medication reviewed and reconciled. Physical Exam Const alert, oriented x3, no apparent distress and average body habitus General Appearance: cooperative, comfortable and well developed Orientation / Consciousness: awake HEENT normocephalic, head/scalp atraumatic, hearing grossly normal bilaterally, moist oral mucous membranes and oropharynx normal Mouth: oral and palatal mucosa normal Eyes PERRL, EOMs intact bilaterally and conjunctivae normal Neck no lymphadenopathy, supple and no JVD Lymph Lymphatic: no lymphadenopathy noted and no lymphedema noted Resp normal respiratory effort, normal air movement, no retractions, no use of accessory muscles and clear to auscultation bilaterally Cardio regular rate, regular rhythm, S1 normal heart sound, S2 normal heart sound and no murmurs GI normal to inspection, nondistended, normoactive bowel sounds, soft to palpation, non-tender and non-distended Extremity normal to inspection, full ROM, normal capillary refill, no clubbing, cyanosis o r edema and no calf tenderness General Extremity: no tenderness to palpation of joints or extremities Skin General Skin Exam: no breakdown Neuro oriented x3, CN's II-XII intact bilaterally, moves all extremities, no focal motor deficits and no sensory deficits noted Sensorium / Orientation: awake, alert, oriented to person, oriented to place and oriented to time Speech: speech normal Motor Exam: strength 5/5 throughout and general weakness Psych thought process normal and cooperative Psych Narrative: depressed affect Appearance: appropriate Mood & Affect: depressed Weight / BMI Weight Weight: 177 lb 15.984 oz Body Mass Index (BMI) 24.8 ABG / Lab / Microbiology Data 09/19/23 12:03 09/19/23 12:03 Laboratory: Laboratory Results - last 24 hr 09/20/23 07:13: Ethyl Alcohol < 3.0 Meaningful Use Info Meaningful Use Meaningful Use Diagnoses (Choose all that apply): None applicable Ischemic Stroke Statin Dosing Therapy Reference: STATIN DOSE THERAPY REFERENCE: * Patients > 75 years receive moderate or high dose statin therapy. * Patients 75 years or YOUNGER should receive HIGH intensity statin dose unless contraindicated. You will be required to document reason for non-treatment if statin daily dose does not meet guidelines. HIGH DOSE STATIN THERAPY DAILY Atorvastatin > than or = to 40 mg Rosuvastatin > than or = to 20 mg Amlodipine + Atorvastatin > than or = to 2.5/40 mg Ezetimibe + Simvastatin 10/80 mg Simvastatin 80mg Discharge Plan Admission Admit Date/Time: 09/19/23 14:28 Attending Provider: Danna Dolan Primary Care Provider: Care Physician,No Primary Consulting Providers: Pan Stahl Discharge Orders/Prescriptions Prescriptions: No Action multivitamin [Daily Multi-Vitamin] Tablet 1 tab PO DAILY cholecalciferol (vitamin D3) [D3-2000] 50 mcg (2,000 unit) capsule 50 mcg PO DAILY omega 6-rhs-yme-fish oil [Fish Oil] 60-90-500 mg capsule 1 cap PO DAILY zinc sulfate 1 tab PO DAILY magnesium oxide 1 tab PO DAILY Referrals / Follow Up: Care Physician,No Primary [Primary Care Provider] - Disposition Disposition (needs filled in before D/C Order can be placed): Acute Care Hospital Charges/Coding Visit Charges Inpatient E&M: 49801 Disch Hosp >30min
== END 2023-09-20 18:24 | disposition short-term general hospital (02) | DRG 775 ==
LOC: ED 13:13 → MS3 14:50
PROVIDERS: Physician Assistant; Admitting Provider Internal Medicine; Emergency Provider Emergency Medicine; Visit Provider Student in an Organized Health Care Education/Training Program
DX: F10.139 Alcohol abuse with withdrawal, unspecified (principal); R45.851 Suicidal ideations; F32.A Depression, unspecified; F17.210 Nicotine dependence, cigarettes, uncomplicated; Y90.8 Blood alcohol level of 240 mg/100 ml or more
CPT/HCPCS: 36415; 80053; 80307; 80320; 85025; 97802; 99283; J7030; G0480; J2405